=== PATIENT | male | born 1985 | race Caucasian/White ===

== ENCOUNTER 2016-11-07 19:24 | Emergency (ER) | payer MEDICAID, OTHER ==
[~2016-11-07 19:24] MED LIST: DEPA500T3 PO
[2016-11-07 19:28] VITALS: BP 123/87; PULSE 63; RESP 16; TEMP 98.5; O2SAT 99
[2016-11-07] MEDS ORDERED: VALP250 PO ×2 (20:11)
[2016-11-07] MEDS ORDERED: PRED-503 PO (20:21)
[2016-11-07] MEDS ORDERED: DICL75TA PO (20:21)
--- NOTE | 2016-11-07 20:27 | PD ---
HPI Chief Complaint: Pain: Acute or Chronic Time Seen by Provider: 20:22 Travel History International Travel<30 days: No Contact w/Intl Traveler<30days: No Traveled to known affect area: No History of Present Illness HPI 31-year-old otboc-smni-swavfres white male presents to emergency department with complaints of a exacerbation of chronic right shoulder pain. He states that he had right shoulder pain now for over 8 months. He was seen by an orthopedist and had an MRI of her shoulder which showed some partial labral tear. He states that he had gotten therapy and it seemed to improve. Over the last 3 days he has had increasing pain once again. He's having pain to the anterior shoulder. Worse with movement. States pain is moderate but can be severe at times. He complains of pain down the arm and some tingling. He denies any acute injury. PFSH Past Medical History Narrative Medical Seizure disorder, right labral tear Cerebrovascular Accident: No Diminished Hearing: No Gastrointestinal Disorders: No Medical other: Yes (RIGHT SHOULDER PROBLEMS) Immunizations Current: Yes Myocardial Infarction: No Seizures: Yes Ulcer: No Past Surgical History Surgical History: No Previous Surgery Social History Alcohol Use: No Tobacco Use: No Substance Use: No Allergies-Medications (Allergen,Severity, Reaction): Coded Allergies: No Known Allergies (Verified , 11/07/16) Reported Meds & Prescriptions Reported Meds & Active Scripts Active Diclofenac Sodium DR (Diclofenac Sodium) 75 Mg Tabdr 75 Mg PO BID Deltasone (Prednisone) 20 Mg Tab 20 Mg PO BID Reported Depakene (Valproic Acid) 250 Mg Cap 750 Mg PO HS Depakene (Valproic Acid) 250 Mg Cap 500 Mg PO AM Review of Systems Except as stated in HPI: all other systems reviewed are Neg Physical Exam Narrative GENERAL: This is a well-nourished, well-developed patient, in no apparent distress. SKIN: No rashes, ecchymoses or lesions. Warm and dry. HEAD: Atraumatic. Normocephalic. EYES: PERRL, EOMI, no discharge or injection. No scleral icterus. EARS: Clear NOSE: Nasal turbinates appear normal. THROAT: Mucosa pink and moist. Airway patent. NECK: Trachea midline. supple, moves head freely. LUNGS: Clear to auscultation. CV: Regular in rhythm. ABDOMEN: Soft nontender. EXT: No clubbing cyanosis or edema. Examination of the right upper extremity reveals patient has placed kenesis tape on the skin. He complains of tenderness to the anterior shoulder with significant decreased range of motion. There is no erythema or warmth. No joint effusion. He is unable to perform range of motion testing due to pain. No pain in the elbow, wrist or hand. He has intact median/ulnar/radial nerves. Data Data Last Documented VS Vital Signs Date Time Temp Pulse Resp B/P Pulse Ox O2 Delivery O2 Flow Rate FiO2 11/07/16 19:28 98.5 63 16 123/87 99 Room Air Orders Dexamethasone Inj (Decadron Inj) (11/07/16 20:30) Ketorolac Inj (Toradol Inj) (11/07/16 20:30) Splint Or Brace Apply/Monitor (11/07/16 20:20) [facility] Medical Decision Making Medical Screen Exam Complete: Yes Emergency Medical Condition: Yes Medical Record Reviewed: Yes Differential Diagnosis MDM: High Differential diagnoses: Fracture, sprain, strain, dislocation, contusion, neurovascular injury, bursitis, tendinitis Narrative Course The patient is given Decadron 10 mg IM and Toradol 60 mg IM. He is placed in a sling. This is right shoulder pain, bursitis Diagnosis Primary Impression: Right shoulder pain Qualified Code: M25.511 - Acute pain of right shoulder Additional Impression: Bursitis Qualified Code: M75.51 - Bursitis of right shoulder Patient Instructions: General Instructions Departure Forms: Tests/Procedures, Work Release Special Instructions: No use the right hand at work for the next 5 days. Additional Instructions: Rest. Sling. Ice. Diclofenac and prednisone. Follow-up with your doctor or your orthopedist in next 3-5 days. Med/Other Pt SpecificInfo: Prescription(s) given Scripts Diclofenac Sodium DR 75 Mg Tabdr75 Mg PO BID #20 TAB Prov:Santi Parks MD 11/07/16 Prednisone (Deltasone)20 Mg Tab20 Mg PO BID #14 TAB Prov:Santi Parks MD 11/07/16 Disposition: 01 DISCHARGE HOME Condition: Stable Johnny Maher Nov 07, 2016 20:27
[2016-11-07] MEDS ORDERED: DEXAMETHASONE SOD PHOS 20 MG/5 ML VIAL IM ONE (20:30)
[2016-11-07] MEDS ORDERED: KETOROLAC TROMETHAMINE 60 MG/2 ML (IM) VIAL IM ONE (20:30)
== END 2016-11-07 21:14 | disposition home or self-care (01) ==
LOC: NEPK 19:24
DX: M25.511 Pain in right shoulder (principal); M75.51 Bursitis of right shoulder; R20.2 Paresthesia of skin; Z86.69 Personal history of other diseases of the nervous system and sense organs; Z87.39 Personal history of other diseases of the musculoskeletal system and connective tissue
CPT/HCPCS: 96372; 99282; J1100; J1885

== ENCOUNTER 2016-11-13 07:23 | Emergency (ER) | payer OTHER, MEDICAID ==
[~2016-11-13] VITALS: Ht 170.2 cm; Wt 91.0 kg
[~2016-11-13 07:23] MED LIST changes: -DEPA500T3 PO; +DICL75TA PO; +PRED-503 PO; +VALP250 PO
[2016-11-13 07:27] VITALS: BP 139/81; PULSE 87; RESP 20; TEMP 98.6; O2SAT 93
[2016-11-13] MEDS ORDERED: SODIUM CHLORIDE 0.9% FLUSH 10 ML FLUSH IVF PRN (07:30)
[2016-11-13] MEDS ORDERED: SODIUM CHLOR 0.9% 1000 ML INJ 1,000 ML IV ONE (07:30)
[2016-11-13 07:32] VITALS: BP 139/81; PULSE 86; RESP 20; TEMP 98.6; O2SAT 94; O2SAT 95
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
[2016-11-13] MEDS ORDERED: TETANUS/DIPHTHERIA TOXOID ADULT 0.5 ML VIAL IM ONE (07:45)
--- NOTE | 2016-11-13 07:49 | RADRPT ---
EXAM DATE/TIME: 11/13/2016 07:39 [facility] COMPARISON: CHEST SINGLE AP, April 26, 2014, 9:35. INDICATIONS : Shortness of breath. MEDICAL HISTORY : None. SURGICAL HISTORY : None. ENCOUNTER: Initial ACUITY: 1 day PAIN SCORE: 0/10 LOCATION: Bilateral chest FINDINGS: The lungs are under aerated but clear. The heart and pulmonary vascularity are normal. The portion of the bony skeleton visualized is unremarkable. CONCLUSION: Under aerated otherwise negative. Enmanuel James MD FACR on November 13, 2016 at 7:47 Board Certified Radiologist. This report was verified electronically.
[2016-11-13 08:01] LABS: AUTOMATED NEUTROPHIL # 6.9 TH/MM3 (1.8-7.7); BASOPHIL % 0.3 % (0.0-2.0); EOSINOPHIL % 0.2 % (0.0-4.0); HEMATOCRIT 40.1 % (39.0-51.0); HEMO FLAGS DIFF FINAL; LYMPH % 35.5 % (9.0-44.0); LYMPHOCYTE # 4.4 TH/MM3 (1.0-4.8); MEAN CELL VOLUME 85.4 FL (80.0-100.0); MEAN CORPUSCULAR HEMOGLOBIN 29.2 PG (27.0-34.0); MEAN CORPUSCULAR HGB CONC 34.2 % (32.0-36.0); MONO % 8.5 % (0.0-8.0); NEUT % 55.5 % (16.0-70.0); PLATELET COUNT 253 TH/MM3 (150-450); RED CELL DISTRIBUTION WIDTH 13.9 % (11.6-17.2); WHITE BLOOD COUNT 12.3 TH/MM3 (4.0-11.0)
[2016-11-13 08:16] LABS: BICARBONATE 23.9 MEQ/L (21.0-32.0); POTASSIUM 3.3 MEQ/L (3.5-5.1)
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
[2016-11-13] MEDS ORDERED: VALPROATE INJ 500 MG in SODIUM CHLORIDE 0.9% INJ 100 ML IV ONE (08:45)
[2016-11-13 09:00] VITALS: BP 142/84; PULSE 79; RESP 20; TEMP 98.6; O2SAT 97
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
[2016-11-13] MEDS ORDERED: POTASSIUM CHLORIDE 10 MEQ CONTROLLED RELEASE TAB PO ONE (10:00)
[2016-11-13 10:30] VITALS: BP 147/85; PULSE 87; RESP 20; O2SAT 98
--- NOTE | 2016-11-13 22:08 | EKG ---
Date Performed: 11/13/2016 Time Performed: 07:32:25 PTAGE: 31 years EKG: Sinus rhythm NORMAL ECG PREVIOUS TRACING : 08/29/2015 09.32 Compared to prior tracing no significant change DOCTOR: Rell Busch Interpretating Date/Time 11/13/2016 22:07:46
== END 2016-11-13 10:55 | disposition home or self-care (01) ==
LOC: NEPC 07:23
DX: R56.9 Unspecified convulsions (principal); S60.519A Abrasion of unspecified hand, initial encounter; V49.9XXA Car occupant (driver) (passenger) injured in unspecified traffic accident, initial encounter
CPT/HCPCS: 70450; 71010; 72125; 80048; 80164; 85025; 93005; 96361; 96365; 99285; J7030

== ENCOUNTER 2016-11-23 19:23 | Emergency (ER) | payer MEDICAID, OTHER ==
[2016-11-23 19:30] VITALS: BP 116/61; PULSE 80; RESP 16; TEMP 99.1; O2SAT 94
[2016-11-23 19:36] VITALS: BP 115/77; PULSE 88; RESP 16; O2SAT 96
[2016-11-23] MEDS ORDERED: VALP250 PO ×4 (19:45→22:08)
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
[2016-11-23 20:03] LABS: AUTOMATED NEUTROPHIL # 4.4 TH/MM3 (1.8-7.7); BASOPHIL % 0.5 % (0.0-2.0); EOSINOPHIL # 0.1 TH/MM3 (0-0.4); EOSINOPHIL % 1.5 % (0.0-4.0); HEMATOCRIT 42.6 % (39.0-51.0); HEMO FLAGS DIFF FINAL; LYMPH % 42.5 % (9.0-44.0); LYMPHOCYTE # 4.2 TH/MM3 (1.0-4.8); MEAN CORPUSCULAR HGB CONC 34.1 % (32.0-36.0); MONO % 10.2 % (0.0-8.0); NEUT % 45.3 % (16.0-70.0); PLATELET COUNT 243 TH/MM3 (150-450); RED BLOOD COUNT 5.01 MIL/MM3 (4.50-5.90); WHITE BLOOD COUNT 9.8 TH/MM3 (4.0-11.0)
[2016-11-23 20:26] LABS: ANION GAP 8 MEQ/L (5-15); BICARBONATE 25.4 MEQ/L (21.0-32.0); BLOOD UREA NITROGEN 14 MG/DL (7-18); CHLORIDE 107 MEQ/L (98-107); GLOMERULAR FILTRATION RATE 74 ML/MIN (>89); POTASSIUM 3.8 MEQ/L (3.5-5.1); SODIUM (NA) 140 MEQ/L (136-145)
[2016-11-23] MEDS ORDERED: VALPROIC ACID 250 MG CAP PO SCH (20:45)
[2016-11-23] MEDS ORDERED: ACETAMINOPHEN 325 MG TAB PO ONE (21:15)
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
--- NOTE | 2016-11-24 22:39 | EKG ---
Date Performed: 11/23/2016 Time Performed: 19:36:44 PTAGE: 31 years EKG: Sinus rhythm WITH MARKED SINUS ARRHYTHMIA BORDERLINE ECG PREVIOUS TRACING : 11/13/2016 07.32 Compared to prior tracing no significant change DOCTOR: Nalini Monreal Interpretating Date/Time 11/24/2016 22:38:48
== END 2016-11-23 22:42 | disposition home or self-care (01) ==
LOC: NEPE 19:23
DX: G40.909 Epilepsy, unspecified, not intractable, without status epilepticus (principal); M25.561 Pain in right knee; Z87.828 Personal history of other (healed) physical injury and trauma; I49.8 Other specified cardiac arrhythmias; Z91.14 Patient's other noncompliance with medication regimen
CPT/HCPCS: 73560; 80048; 80164; 85025; 93005; 99284; L1830

== ENCOUNTER 2017-01-14 10:22 | Emergency (ER) | payer MEDICAID ==
[~2017-01-14] VITALS: Ht 170.2 cm; Wt 90.5 kg
[~2017-01-14 10:22] MED LIST changes: -DICL75TA PO; -PRED-503 PO
[2017-01-14 10:28] VITALS: BP 120/72; PULSE 95; RESP 18; TEMP 98.5; O2SAT 99
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
[2017-01-14 10:52] VITALS: BP 124/76; PULSE 82; RESP 18; O2SAT 99
[2017-01-14 10:53] LABS: AUTOMATED NEUTROPHIL # 3.9 TH/MM3 (1.8-7.7); BASOPHIL # 0.2 TH/MM3 (0-0.2); BASOPHIL % 1.7 % (0.0-2.0); EOSINOPHIL # 0.2 TH/MM3 (0-0.4); HEMATOCRIT 46.3 % (39.0-51.0); HEMO FLAGS DIFF FINAL; LYMPH % 46.1 % (9.0-44.0); LYMPHOCYTE # 4.3 TH/MM3 (1.0-4.8); MEAN CELL VOLUME 84.2 FL (80.0-100.0); MEAN CORPUSCULAR HEMOGLOBIN 28.9 PG (27.0-34.0); MEAN CORPUSCULAR HGB CONC 34.3 % (32.0-36.0); MONO % 9.4 % (0.0-8.0); NEUT % 40.8 % (16.0-70.0); PLATELET COUNT 219 TH/MM3 (150-450); RED CELL DISTRIBUTION WIDTH 13.1 % (11.6-17.2); WHITE BLOOD COUNT 9.5 TH/MM3 (4.0-11.0)
[2017-01-14 11:04] LABS: POTASSIUM 3.9 MEQ/L (3.5-5.1)
[2017-01-14 11:07] LABS: BICARBONATE 22.4 MEQ/L (21.0-32.0)
[2017-01-14] MEDS ORDERED: ACETAMINOPHEN 325 MG TAB PO ONE (11:15)
[2017-01-14] MEDS ORDERED: LORazepam 2 MG/ML VIAL ONE (11:35)
[2017-01-14] MEDS ORDERED: LORazepam 2 MG/ML VIAL IV PUSH ONE (11:45)
[2017-01-14 11:52] VITALS: BP 119/77; PULSE 95; RESP 22; TEMP 98.9; O2SAT 97
[2017-01-14 12:05] VITALS: O2SAT 92
[2017-01-14] MEDS ORDERED: VALPROATE INJ 1,000 MG in SODIUM CHLORIDE 0.9% INJ 100 ML IV ONE (12:30)
[2017-01-14 12:50] VITALS: BP 109/71; PULSE 94; RESP 20
[2017-01-14 13:47] VITALS: BP_SYST 109; BP_SYST 111; BP_DIAS 61; BP_DIAS 71; PULSE 88; RESP 18; O2SAT 99
== END 2017-01-14 14:06 | disposition home or self-care (01) ==
LOC: PHED 10:22
DX: R56.9 Unspecified convulsions (principal); R79.89 Other specified abnormal findings of blood chemistry
CPT/HCPCS: 80048; 80164; 85025; 96365; 96375; 99284; J2060

== ENCOUNTER 2017-05-01 11:07 | Emergency (ER) | payer MEDICAID ==
[~2017-05-01] VITALS: Ht 170.2 cm; Wt 100.0 kg
[2017-05-01 11:09] VITALS: BP 129/79; PULSE 62; RESP 15; TEMP 98.4; O2SAT 99
[2017-05-01] MEDS ORDERED: IBUP800T23 PO (11:48)
[2017-05-01] MEDS ORDERED: BACT800T5 PO (11:48)
[2017-05-01] MEDS ORDERED: CEPH-460 PO (11:48)
--- NOTE | 2017-05-01 11:51 | PD ---
HPI Chief Complaint: Skin Problem Time Seen by Provider: 11:47 Travel History International Travel<30 days: No Contact w/Intl Traveler<30days: No Traveled to known affect area: No History of Present Illness HPI 31-year-old male presents emergency Department with complaint of an infected wound to his right fourth finger after slamming it between a brick and concrete a week ago. Denies paresthesias, loss of sensation, decreased range of motion to the affected finger. Reports drainage from the wound site. His fever, vomiting. Up-to-date on tetanus vaccination. Has been taking ibuprofen for symptom management. Symptoms are moderate in severity. Has no other physical complaints. No known allergies. No other modifying factors or associated signs and symptoms. PFSH Past Medical History Cerebrovascular Accident: No Diminished Hearing: No Gastrointestinal Disorders: No Immunizations Current: Yes Myocardial Infarction: No Seizures: Yes Ulcer: No Social History Alcohol Use: No Tobacco Use: No Substance Use: No Allergies-Medications (Allergen,Severity, Reaction): Coded Allergies: No Known Allergies (Verified , 05/01/17) Reported Meds & Prescriptions Reported Meds & Active Scripts Active Ibuprofen 800 Mg Tab 800 Mg PO Q6HR PRN Bactrim DS (Sulfamethoxazole-Trimethoprim) 800-160 Mg Tab 1 Tab PO BID 10 Days Keflex (Cephalexin) 500 Mg Cap 500 Mg PO Q6H 10 Days Reported Depakene (Valproic Acid) 250 Mg Cap 750 Mg PO HS Depakene (Valproic Acid) 250 Mg Cap 500 Mg PO DAILY Review of Systems Except as stated in HPI: all other systems reviewed are Neg Physical Exam Narrative GENERAL: Well-nourished, well-developed male patient, in no acute distress SKIN: Warm and dry. Ventral aspect of the right fourth finger just below the nail bed with infected wound with purulent Drainage noted; there is no fluctuance to the area; minimal surrounding erythema around the wound. The finger is mildly edematous and without erythema. No lymphangitis noted. Finger with full range of motion, sensory intact, good opposition. Right upper extremity is supple and non-tense with 2+ radial pulse. HEAD: Atraumatic. Normocephalic. EYES: Pupils equal and round. No scleral icterus. No injection or drainage. ENT: Mucosa pink and moist. Airway patent. NECK: Trachea midline. CARDIOVASCULAR: Regular rate. RESPIRATORY: No accessory muscle use. GASTROINTESTINAL: Flat. MUSCULOSKELETAL: No obvious deformities. No clubbing. No cyanosis. No edema. NEUROLOGICAL: Awake and alert. Oriented 3. No obvious cranial nerve deficits. Motor grossly within normal limits. Normal speech. PSYCHIATRIC: Appropriate mood and affect; insight and judgment normal. Data Data Last Documented VS Vital Signs Date Time Temp Pulse Resp B/P (MAP) Pulse Ox O2 Delivery O2 Flow Rate FiO2 05/01/17 11:53 05/01/17 11:09 98.4 62 15 99 Orders Orders Ibuprofen (Motrin) (05/01/17 12:00) Wound Culture And Gram Stain (05/01/17 11:57) [facility] Medical Decision Making Medical Screen Exam Complete: Yes Emergency Medical Condition: Yes Medical Record Reviewed: Yes Differential Diagnosis Wound infection, cellulitis, paronychia Narrative Course 31-year-old male with wound infection to his right fourth finger. Tetanus up-to -date. Wound culture pending. I offered to x-ray the finger to rule out fracture and the patient declined. He says he doesn't think his fingers fractured. Ibuprofen administered in the ER. Keflex, Bactrim, ibuprofen prescribed for home. Instructed patient to follow up with primary care provider. Patient verbalizes understanding and agreement with treatment plan. Patient is medically cleared and stable for discharge. Discussed reasons to return to the emergency department. Patient agrees with treatment plan. The patients vital signs are stable and the patient is stable for outpatient follow- up and treatment. Patient discharged home, stable and in no acute distress. Diagnosis Primary Impression: Wound infection Referrals: Primary Care Physician Patient Instructions: Acute Wound Care (DC), General Instructions, Wound Infection (ED) Additional Instructions: Complete full course of antibiotics Warm compresses to the affected area Keep area clean and dry Antibiotic ointment as directed and as needed for wound care Ibuprofen or Tylenol as directed and as needed for pain and inflammation Follow-up with primary care provider Return to emergency department immediately with worsening of symptoms Med/Other Pt SpecificInfo: Prescription(s) given Scripts Ibuprofen (Ibuprofen) 800 Mg Tab 800 MG PO Q6HR Y for PAIN, #30 TAB 0 Refills Prov: Tarah Chou [employer] 05/01/17 Sulfamethoxazole-Trimethoprim (Bactrim DS) 800-160 Mg Tab 1 TAB PO BID for Infection for 10 Days, #20 TAB 0 Refills Prov: Tarah Chou 05/01/17 Cephalexin (Keflex) 500 Mg Cap 500 MG PO Q6H for Infection for 10 Days, #40 CAP 0 Refills Prov: Tarah Chou 05/01/17 Disposition: 01 DISCHARGE HOME Condition: Stable Tarah Chou May 01, 2017 11:51
[2017-05-01] MEDS ORDERED: IBUPROFEN 800 MG TAB PO ONE (12:00)
== END 2017-05-01 12:11 | disposition home or self-care (01) ==
LOC: NEPK 11:07
DX: L08.9 Local infection of the skin and subcutaneous tissue, unspecified (principal); B95.61 Methicillin susceptible Staphylococcus aureus infection as the cause of diseases classified elsewhere; B95.1 Streptococcus, group B, as the cause of diseases classified elsewhere
CPT/HCPCS: 86403; 87070; 87186; 99284